=== PATIENT | female | born 1940 | race Asian ===

== ENCOUNTER → 2018-03-17 | Outpatient (CLI) | payer MEDICARE, OTHER ==
[2018-03-17 08:35] VITALS: BP 165/90
== END | disposition home or self-care (01) ==
LOC: CARDMN 08:20
PROVIDERS: ATTEND Internal Medicine Cardiovascular Disease
DX: I08.3 Combined rheumatic disorders of mitral, aortic and tricuspid valves (principal); I50.1 Left ventricular failure, unspecified; I25.89 Other forms of chronic ischemic heart disease
CPT/HCPCS: 93306

== ENCOUNTER → 2018-03-23 | Outpatient (CLI) | payer MEDICARE, OTHER ==
[~2018-03-23] MED LIST: REGADENOSON 0.4 MG/5 ML PF SYRINGE IVP ONE; SESTAMIBI TC99M/UD ISOTOPE 1 EA INJ INJ ONE
[2018-03-23 08:30] VITALS: BP 153/89
[2018-03-23 09:41] VITALS: BP 164/85
== END | disposition home or self-care (01) ==
LOC: CARDMN 08:14
PROVIDERS: ATTEND Internal Medicine Cardiovascular Disease
DX: I25.9 Chronic ischemic heart disease, unspecified (principal); R07.9 Chest pain, unspecified
CPT/HCPCS: 78452; 93017; A9500; J2785